=== PATIENT | male | born 1995 | race Caucasian/White ===

== ENCOUNTER 2017-06-19 17:32 | Emergency (ER) | payer SELFPAY ==
--- NOTE | 2017-06-19 17:57 | EDPHY ---
General - History Smoking Status: Current every day smoker Narrative: CHIEF COMPLAINT: Suicidal thoughts, flu-like symptoms HISTORY OF PRESENT ILLNESS: Patient has 2 complaints. The 1st is flu-like symptoms. This includes body aches, rash, fevers, chills nausea, cough. No chest pain. Occasional headache when his temperature rises. No neck pain or stiffness. No shortness of breath. No abdominal pain. No urinary complaints. No actual vomiting. This symptoms started abruptly yesterday. They have been constant ever since. No predictable modifying factors for this. Second complaint is suicidal ideation. The symptoms started yesterday. They have been constant. He will not delineate his plan but expresses intent to do so. He began speaking length regarding his previous childhood adverse events, which he feels let to depression. He has not been formally evaluated for this scenario or ever diagnosed with any depression or anxiety. He denies any attempt to harm himself today. He denies any access to weapons. He has not spoken out anyone about this. He is here voluntarily for this. [place] has no friends or family. PSYCHIATRIC DIAGNOSES: No formal diagnoses PRIOR PSYCHIATRIC EVALUATIONS: None M1/DETAINER: At time of the admission by Dr. Roy REVIEW OF SYSTEMS: Ten systems reviewed and are negative unless otherwise noted in the HPI EXAMINATION General Appearance: Alert, no distress, unkempt Head: normocephalic, atraumatic Eyes: Pupils equal and round, no conjunctival pallor. Mild injection. EOMs intact. ENT, Mouth: Mucous membranes moist. Mild posterior erythema. No exudate. No asymmetry of the tonsils. Uvula is midline. Airway is widely patent Neck: Normal inspection, supple, non-tender. Painless range of motion in all planes. No meningeal signs. Respiratory: Mild rhonchi. No wheezing. No consolidation or diminishment. No crackles. Cardiovascular: Regular rate and rhythm. No murmur. Pulses intact distally and symmetrically Gastrointestinal: Abdomen is soft and nontender. No appreciated hepatosplenomegaly. No CVA tenderness. No guarding. Bowel sounds are symmetric in all 4 quadrants Back: non-tender, no bony abnormalities Neurological: GCS 15. A&O, nonfocal, normal gait. Strength is symmetric in all 4 limbs. Skin: Warm and dry. There is a rash about the chest and abdomen consistent with viral exanthem. This is a blanchable rash. No purpura. No petechiae. No vesicles. No cellulitis. Extremities: Nontender, no pedal edema. Symmetric range of motion of the extremities Psychiatric: Mood and affect normal DIFFERENTIAL DIAGNOSES: Including but not limited to influenza, viral illness, pneumonia, bronchitis, depression, suicidal ideation MDM: 5:55 p.m. Patient complains of flu-like symptoms in addition to suicidal thoughts with suicidal thoughts started yesterday. They are persistent. He will not disclose a plan to me. He does express consent to do so. He denies any ingestion of any pills or attempt to harm self today. He denies alcohol ingestion today. He does not have access to weapons. He recently moved here from [place]. He has no family locally, they are all back in used in [place]. He does reportedly have 1 friend here. He is tearful but consolable. He is in no acute distress. Vital signs are within normal limits. Laboratory studies ordered for clearance. In addition, I have ordered a flu swab and a chest x- ray to rule out pneumonia 6:25 p.m. Chest x-ray has been read by radiologist. Likely bronchitis with no evidence of pneumonia. 6:35 p.m. Patient is medically cleared for evaluation at this time. His flu test will not affect his evaluation and/or placement. 7:20 p.m. Notified by RN that the patient's evaluation had started and then was stopped due to lack of cooperation. There is reports he became agitated as security attempted to remove his dog. I have discussed this with him. He says he became very upset and "I don't know, I shut down man." He informed me that he will cooperate with the examination at this time. 8:35 p.m. Patient will be re-evaluated. This is pending. 9:30 p.m. Patient reportedly has been evaluated recommended for placement. This is pending at this time. 11:30 p.m. Patient still is awaiting placement. 12:00 a.m. At this time Dr. Blakely will assume care the patient. Please see her note for final disposition. (Pepe Castanon) 6:00 a.m.- The patient has remained stable throughout my shift. He is awaiting placement, though will be re-evaluated by mental health in the morning. Anticipate at 7: 00 a.m. the case will be signed out to the oncoming provider Dr. Fong. (Ly Blakely) I assumed care this patient at change of shift. The patient has been psychiatrically evaluated once again this morning. The patient got a good night 's sleep according to the psychiatric evaluators is no longer suicidal. He has been given outpatient resources and the psychiatrist has dropped the M1 hold. ( Josue Fong) - Objective Vital Signs: Initial Vital Signs Temperature (C) 36.7 C 06/19/17 17:36 Heart Rate 88 06/19/17 17:36 Respiratory Rate 16 06/19/17 17:36 Blood Pressure 150/87 H 06/19/17 17:36 O2 Sat (%) 93 06/19/17 17:36 O2 Delivery Mode Room Air Allergies/Adverse Reactions: No Known Allergies Allergy (Unverified 06/19/17 17:36) Home Medications: Medication Instructions Recorded Ssd 06/19/17 Laboratory Results: Laboratory Results 06/19/17 18:00 06/19/17 18:00 Medications Given: Discontinued Medications Nicotine (Nicoderm Cq) 21 mg TD EDNOW ONE Stop: 06/19/17 18:25 Last Admin: 06/19/17 18:45 Dose: 21 mg Departure - Departure Disposition: Home, Routine, Self-Care Clinical Impression: Suicidal ideation Condition: Good Instructions: Depression (ED) Referrals: NONE *PRIMARY CARE P,. [Primary Care Provider] - As per Instructions
[2017-06-19 18:17] LABS: % IMMATURE GRANULYOCYTES 0.3 % (0.0-1.1); ABSOLUTE IMMATURE GRANULOCYTES 0.03 10^3/uL (0.00-0.10); ADD DIFF? NO; ADD MORPH? NO; ADD SCAN? NO; ATYPICAL LYMPHOCYTE FLAG 10 (0-99); FRAGMENT RBC FLAG 0 (0-99); HEMATOCRIT 44.9 % (40.0-51.0); HEMOGLOBIN 16.2 g/dL (13.7-17.5); LEFT SHIFT FLG 0 (0-99); LIPEMIA HEMOLYSIS FLAG 90 (0-99); MEAN CELL HEMOGLOBIN 31.3 pg (27.9-34.1); MEAN CELL HEMOGLOBIN CONCENTR. 36.1 g/dL (32.4-36.7); MEAN CELL VOLUME 86.7 fL (81.5-99.8); MEAN PLATELET VOLUME 11.3 fL (8.7-11.7); PLATELET CLUMPS FLAG 0 (0-99); PLATELET COUNT 280 10^3/uL (150-400); RED BLOOD CELL COUNT 5.18 10^6/uL (4.40-6.38); RED CELL DISTRIBUTION WIDTH 12.2 % (11.5-15.2)
[2017-06-19] MEDS ORDERED: NICOTINE 21 MG/24 HR PATCH TD ONE (18:24)
[2017-06-19 18:33] LABS: ANION GAP 15 mEq/L (8-16); CALCIUM 10.1 mg/dL (8.5-10.4); CARBON DIOXIDE 21 mEq/l (22-31); CHLORIDE 103 mEq/L (97-110); CREATININE 0.9 mg/dL (0.7-1.3); ETHANOL SERUM < 10 mg/dL (0-10); GLOMERULAR FILTRATION RATE > 60; GLUCOSE 85 mg/dL (70-100); SALICYLATE < 1.0 mg/dL (2.0-20.0); SODIUM 139 mEq/L (134-144)
[2017-06-19 22:46] VITALS: RESP 18
[2017-06-20 10:05] VITALS: BP 123/78; PULSE 62; TEMP 98.1; O2SAT 96
== END 2017-06-20 10:05 | disposition home or self-care (01) ==
DX: R45.851 Suicidal ideations (principal); F17.200 Nicotine dependence, unspecified, uncomplicated
CPT/HCPCS: 80305; G0480